=== PATIENT | male | born 1990 | race Caucasian/White ===

== ENCOUNTER 2023-10-08 16:12 | Emergency (ER) | payer OTHER ==
[~2023-10-08] VITALS: Ht 193 cm; Wt 104.5 kg
[2023-10-08 16:16] VITALS: BP 133/81; PULSE 95; RESP 18; O2SAT 95
[2023-10-08] MEDS: LIDOcaine 1% 30ml preserv. free vial IJ STA (17:43)
[2023-10-08 18:58] VITALS: TEMP 97.8
== END 2023-10-08 19:00 | disposition home or self-care (01) ==
LOC: ER 16:13
DX: S61.213A Laceration without foreign body of left middle finger without damage to nail, initial encounter (principal); X58.XXXA Exposure to other specified factors, initial encounter; Y93.89 Activity, other specified; Y92.89 Other specified places as the place of occurrence of the external cause; Y99.8 Other external cause status
CPT/HCPCS: 12001; 73140; 99283; J7030; A4615; A6449